=== PATIENT | female | born 2005 | race Caucasian/White ===

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

== ENCOUNTER 2024-01-04 13:34 | Outpatient (REF) | payer MEDICAID, SELFPAY ==
[2024-01-04 16:18] LABS: Mean Platelet Volume 13.1 fL (9.4-12.3); Red Cell Distribution Width 14.2 % (11.0-16.0)
[2024-01-04 16:20] LABS: Hematocrit 44.2 % (37.0-47.0); Hemoglobin 14.3 g/dl (12.0-16.0); Mean Corpuscular HGB Conc 32.4 g/dl (31.0-35.0); Mean Corpuscular Hemoglobin 26.1 pg (27.0-33.0); Mean Corpuscular Volume 80.8 fL (80.0-98.0); Platelet Count 279 X10*3/uL (160-400); Red Blood Count 5.47 X10*6/uL (4.20-5.50); White Blood Count 7.9 X10*3/uL (4.8-10.8)
[2024-01-04 16:40] LABS: Prothrombin Time 11.6 SEC (11.1-13.3)
[2024-01-04 16:43] LABS: Partial Thromboplastin Time 30.2 SEC (26.0-36.8)
[2024-01-04 16:48] LABS: TSH reflex Free T4 1.04 uIU/mL (0.32-4.0)
[2024-01-04 17:08] LABS: PLT ABN DIST 1
== END 2024-01-04 13:35 | disposition home or self-care (01) ==
LOC: HO.HHCL 13:34
PROVIDERS: Visit Provider Advanced Practice Midwife
DX: N92.0 Excessive and frequent menstruation with regular cycle (principal)
CPT/HCPCS: 36415; 84443; 85027; 85610; 85730

== ENCOUNTER 2024-01-30 11:53 | Outpatient (REF) | payer MEDICAID, SELFPAY ==
[2024-01-30 14:36] LABS: Alanine Aminotransferase 17 U/L (0-31); Aspartate Amino Transferase 21 U/L (5-31); Bilirubin Direct 0.2 mg/dL (0.0-0.5); Bilirubin Total 0.4 mg/dL (0.0-1.0)
[2024-02-02 16:08] LABS: Von Willebrand Factor Antigen 80 % (50-217)
== END 2024-01-30 11:54 | disposition home or self-care (01) ==
LOC: HO.HHCL 11:53
PROVIDERS: Visit Provider Advanced Practice Midwife
DX: N92.0 Excessive and frequent menstruation with regular cycle (principal); Z91.89 Other specified personal risk factors, not elsewhere classified
CPT/HCPCS: 36415; 82247; 82248; 84450; 84460; 85246